=== PATIENT | male | born 2000 | race Caucasian/White ===

== ENCOUNTER 2021-11-06 15:35 | Emergency (ER) | payer OTHER ==
[~2021-11-06] VITALS: Ht 180.3 cm; Wt 172.7 kg
[2021-11-06 15:37] VITALS: TEMP 97
[2021-11-06 16:25] VITALS: BP 152/82; PULSE 80
[2021-11-06] MEDS ORDERED: TORADOL 10MG TA10 MG PO (23:43)
[2021-11-06] MEDS ORDERED: PREDNISONE20 MG PO (23:43)
== END 2021-11-06 16:25 | disposition home or self-care (01) ==
LOC: COL.ER 15:35
DX: S89.92XA Unspecified injury of left lower leg, initial encounter (principal); Z28.310 Unvaccinated for COVID-19; X50.1XXA Overexertion from prolonged static or awkward postures, initial encounter; Y92.59 Other trade areas as the place of occurrence of the external cause; Y99.0 Civilian activity done for income or pay

== ENCOUNTER 2021-11-06 23:07 | Emergency (ER) | payer OTHER ==
[~2021-11-06] VITALS: Ht 180.3 cm; Wt 172.7 kg
[2021-11-06 23:27] VITALS: BP 143/57; TEMP 98.3
[2021-11-06] MEDS ORDERED: PREDNISONE20 MG PO (23:43)
[2021-11-06] MEDS ORDERED: TORADOL 10MG TA10 MG PO (23:43)
[2021-11-07 00:15] VITALS: PULSE 76
== END 2021-11-07 00:15 | disposition home or self-care (01) ==
LOC: COL.ER 23:07
DX: S83.92XA Sprain of unspecified site of left knee, initial encounter (principal); Z28.310 Unvaccinated for COVID-19; X58.XXXA Exposure to other specified factors, initial encounter; Y92.59 Other trade areas as the place of occurrence of the external cause; Y99.0 Civilian activity done for income or pay
CPT/HCPCS: J1885; J7512; L1846